=== PATIENT | male | born 1950 | race Caucasian/White ===

== ENCOUNTER 2020-07-01 10:19 | Outpatient (CLI) | payer MEDICARE, SELFPAY ==
--- NOTE | 2020-07-01 10:30 | ECG_ITS ---
Measurements Intervals [place] Rate: 77 P: 82 DE: 174 QRS: -6 QRSD: 110 T: 65 QT: 373 QTc: 424 Interpretive Statements SINUS RHYTHM INTRAVENTRICULAR CONDUCTION DELAY CANNOT RULE OUT SEPTAL INFARCT, AGE INDETERMINATE BASELINE ARTIFACT- I, II, III, AVR, AVL, AVF, V2-V6 ABNORMAL ECG Electronically Signed On 07-01-2020 11:02:19 CDT by Jacobo Manzo D.O.
[2020-07-01 13:07] LABS: Anion Gap 3 mmol/L (8-16); Blood Urea Nitrogen 24 mg/dL (9-20); Calcium 9.5 mg/dL (8.4-10.2); Carbon Dioxide 34 mmol/L (22-30); Chloride 101 mmol/L (98-107); Estimated Glomerular Filt Rate > 60; Glucose 103 mg/dL (75-110); Potassium 3.8 mmol/L (3.4-5.0); Sodium 138 mmol/L (137-145)
== END 2020-07-01 10:20 | disposition home or self-care (01) ==
LOC: ANHSURGERY 10:24
PROVIDERS: Anesthesiology; PCP Internal Medicine; Visit Provider Urology
DX: I10 Essential (primary) hypertension (principal); Z01.818 Encounter for other preprocedural examination; Z51.81 Encounter for therapeutic drug level monitoring; I45.9 Conduction disorder, unspecified
CPT/HCPCS: 36415; 80048; 93005

== ENCOUNTER → 2020-07-05 04:17 | Outpatient (CLI) | payer MEDICARE, SELFPAY ==
[2020-07-05 19:57] LABS: SARS-CoV-2 RNA PCR Negative
== END ==
PROVIDERS: PCP Internal Medicine; Visit Provider Urology
DX: Z01.812 Encounter for preprocedural laboratory examination (principal); Z20.822 Contact with and (suspected) exposure to COVID-19
CPT/HCPCS: C9803; U0003; U0005

== ENCOUNTER 2020-07-08 01:54 | Day surgery (SDC) | payer MEDICARE, SELFPAY ==
[2020-06-16 11:07] VITALS: BMI 25.8
--- NOTE | 2020-07-05 08:11 | P.HP_ITS ---
History of Present Illness History of Present Illness Consent: Risks, benefits, and alternatives have been discussed and questions answered. Patient agrees to proceed with procedure. Chief complaint: elevated PSA Narrative: Fermín Red is a 69 year old male He is currently on finasteride for BPH and has had 2 prior negative biopsies by an outside urologist in the past. He has had recent progression in his PSA and a prostate MRI showed PI-RADS 5 lesion in the right periphery and a PI-RADS 4 lesion in the anterior transition zone. After discussion of options he has elected for a transrectal ultrasound fusion biopsy of the prostate. He is aware of the risk including rectal bleeding and urinary tract infection with possible sepsis. Review of Systems Cardiovascular: Cardiovascular: Denies chest pain, Denies lightheadedness, Denies palpitations and Denies dyspnea Respiratory: Respiratory: Denies dyspnea Gastrointestinal: Gastrointestinal: Denies diarrhea, Denies nausea and Denies vomiting Genitourinary: Genitourinary: Denies hematuria and Denies dysuria Endocrine: Endocrine: Denies palpitations PMF Social History Social History Smoking packs per day: 1.5 Smoking cigarettes per day: 30.0 Years smoked: 40 Smoking pack-years: 60.00 Smoking status: Never smoker Tobacco type: cigarettes Smoking end date: 03/12/14 Gender identity (if verbalized by the patient): Male Spiritual care concerns: No Meds Home Medications and Allergies Home Medications Medication Instructions Recorded Confirmed Type ascorbic acid (vitamin C) 500 mg PO DAILY 06/16/20 06/29/20 History aspirin [Adult Low Dose Aspirin] 81 mg PO DAILY 06/16/20 06/29/20 History chlorthalidone 25 mg PO DAILY 06/16/20 06/29/20 History cholecalciferol (vitamin D3) 25 mcg PO DAILY 06/16/20 06/29/20 History finasteride 5 mg PO DAILY 06/16/20 06/29/20 History guaifenesin [Mucinex] 1,200 mg PO BID 06/16/20 06/29/20 History lisinopril 40 mg PO DAILY 06/16/20 06/29/20 History vglqhcir-jol-WT-lycopen-lutein 1 tablet PO DAILY 06/16/20 06/29/20 History [Centrum Silver Men] umeclidinium-vilanterol [Anoro 62.5 ea INHALATION DAILY 06/16/20 06/29/20 History Ellipta] Allergies Allergy/AdvReac Type Severity Reaction Status Date / Time No Known Allergies Allergy Mild Unverified 06/29/20 12:54 Exam Const: General: no acute distress Resp: Effort & Inspection: normal respiratory effort GI: Inspection: non-distended GI Palp: No abdominal tenderness and No Guarding due to palpation present (GI) Auscultation: normal bowel sounds Assessment and Plan Assessment and plan (1) Elevated PSA: Code(s): R97.20 - Elevated prostate specific antigen [PSA] Status: Acute Assessment and Plan: * MRI fusion biopsy of the prostate.
--- NOTE | 2020-07-08 06:55 | WPDHPUPDATE1 ---
History and Physical Update Update Date/Time: 07/08/20 06:55 History and Physical has been reviewed, including an updated exam of the patient. There are NO changes in the patient's condition. Risks, benefits, and alternatives have been discussed and questions answered. Patient agrees to proceed with procedure.
[2020-07-08 10:58] VITALS: BP 149/78; PULSE 98; RESP 14; TEMP 36.6; O2SAT 100
[2020-07-08] MEDS: LACTATED RINGERS 1,000 ML 30 ML IV CONT (11:21)
--- NOTE | 2020-07-08 11:31 | SUR.PREOP ---
patient currently on 3l nc at home, placed nc 3L on pt.fwith o2 sat 100%.
--- NOTE | 2020-07-08 11:37 | WPDANESEPPF ---
Anes - Initial Pre Proc Eval Procedure: Operation Date: 07/08/20 12:45 Proposed Procedures p Prostate Ultrasound and Cognitive Uronav Fusion Biopsy - Richard Dangelo MD Date/Time: 07/08/20 11:37 Surgeon: Richard Dangelo MD Pre Op Diagnosis: elevated PSA Patient Data Age: 69 Gender: M Height: 5 ft 11 in Weight: 83.2 kg Last Vital Signs Temp 98 F 07/08/20 10:58 Pulse 98 07/08/20 10:58 Resp 14 07/08/20 10:58 BP 149/78 H 07/08/20 10:58 Pulse Ox 100 07/08/20 10:58 Allergies Allergy/AdvReac Type Severity Reaction Status Date / Time No Known Allergies Allergy Mild Unverified 07/08/20 11:11 Home Medications Medication Instructions Recorded Confirmed Type ascorbic acid (vitamin C) 500 mg PO DAILY 06/16/20 07/08/20 History aspirin [Adult Low Dose Aspirin] 81 mg PO DAILY 06/16/20 07/08/20 History chlorthalidone 25 mg PO DAILY 06/16/20 07/08/20 History cholecalciferol (vitamin D3) 25 mcg PO DAILY 06/16/20 07/08/20 History finasteride 5 mg PO DAILY 06/16/20 07/08/20 History guaifenesin [Mucinex] 1,200 mg PO BID 06/16/20 07/08/20 History lisinopril 40 mg PO DAILY 06/16/20 07/08/20 History rycckgjg-syn-ID-lycopen-lutein 1 tablet PO DAILY 06/16/20 07/08/20 History [Centrum Silver Men] umeclidinium-vilanterol [Anoro 62.5 ea INHALATION DAILY 06/16/20 07/08/20 History Ellipta] Patient hx anesthesia problems: none Family hx anesthesia problems: none PMFSH Past Medical History Medical History (Updated 07/08/20 @ 11:33 by Madhu Mcneil MD) COPD (chronic obstructive pulmonary disease) on 3L at HS Hypertension Social History Social History Smoking packs per day: 1.5 Smoking cigarettes per day: 30.0 Years smoked: 40 Smoking pack-years: 60.00 Smoking status: Never smoker Tobacco type: cigarettes Smoking end date: 03/12/14 Living arrangements: with family Gender identity (if verbalized by the patient): Male Spiritual care concerns: No Anes - Eval Final PreProcedure Day of Procedure 07/08/20 11:37 Patient weight: overweight Heart: regular rate and rhythm Lungs: clear to auscultation Airway: Mallampati scale class II Neurological: alert and oriented Last oral intake: >/= 8 hours ASA classification: III Emergent: no Anesthetic plan: proceed Anesthesia type and monitoring: general GIVS and standard monitoring Informed Consent: The patient's anesthetic plan and its attendant risks and benefits were discussed with the patient/family/POA. Questions were solicited and answers provided to the satisfaction of the patient/family/POA.
--- NOTE | 2020-07-08 13:30 | P.OP_ITS ---
Procedure Note - Detailed Date of procedure: 07/08/20 Pre-op diagnosis: elevated PSA Post-op diagnosis: same Procedure performed: UroNav prostate biopsy Description of procedure: Patient is brought to the operative suite where he is positioned in the left lateral position. Systemic sedation is administered per the anesthesia department. Surgical time-out is undertaken and it's verified the patient has received preoperative antibiotics. Transrectal ultrasonography is undertaken with a standard transrectal probe. The TigerText system is used to superimpose his previously obtained mpMRI prostate images on the real-time transrectal ultrasond images. Prostate volume is calculated at 51cc. On the previous mpMRI there are 2 regions of interest. Using the transrectal needle design for prostate biopsies 3 cores from each region of interest her obtain. We then proceeded with a standard 12 core prostate biopsy. Transrectal probe was removed and patient taken to recovery room having tolerated the procedure well. Blood loss was less than 10 cc. Anesthesia: MAC Surgeon: Richard Dangelo MD Drains: No Packing: No Pathology: yes Complications: No immediate complications Condition: stable Disposition: PACU
[2020-07-08 13:37] VITALS: BP 114/62; PULSE 78; RESP 16; O2SAT 100
[2020-07-08 14:05] VITALS: BP 105/69; PULSE 84; RESP 16; O2SAT 98
[2020-07-08 14:35] VITALS: BP 110/70; PULSE 80; RESP 16; O2SAT 98
[2020-07-08 14:55] VITALS: BP 115/62; PULSE 85; RESP 16; O2SAT 98
== END 2020-07-08 15:05 | disposition home or self-care (01) ==
PROVIDERS: PCP Internal Medicine; Visit Provider Urology
PROC: (CPT 55700; principal; 2020-07-08 12:45)
DX: C61 Malignant neoplasm of prostate (principal); I10 Essential (primary) hypertension; J44.9 Chronic obstructive pulmonary disease, unspecified; Z87.891 Personal history of nicotine dependence
CPT/HCPCS: 55700; 88305; J2405; J2704; J3010; J7120

== ENCOUNTER 2020-07-16 08:35 | Outpatient (CLI) | payer MEDICARE, SELFPAY ==
--- NOTE | ~2020-07-16 | NM_ITS ---
EXAMINATION: NM bone scan whole body DATE: 07/16/2020 12:31 INDICATION: Prostate cancer TECHNIQUE: 26.4 mCi Tc-99m HDP was administered intravenously. Delayed whole-body scintigrams were o btained. COMPARISON: CT dated 07/26/2020 FINDINGS: Mild likely degenerative uptake associated with moderate to severe multilevel cervical facet and unco vertebral osteoarthritis. Additional mild likely degenerative joint centered uptake at the right acro mioclavicular joint associated with moderate osteoarthritis. Mild disc centered uptake associated wit h severe disc height loss and degenerative endplate changes at L4-L5. No other suspicious foci of abn ormal bone uptake to suggest metastatic disease. IMPRESSION: 1. No evident metastatic disease. Reviewed, dictated and finalized at location A.
--- NOTE | ~2020-07-16 | CT_ITS ---
EXAMINATION: CT abdomen pelvis w con INDICATION: Prostate cancer TECHNIQUE: Computed tomographic images of the abdomen and pelvis were obtained after the administrati on of 100 cc of Omnipaque 350 intravenous contrast. The dose-length product (DLP) was 493.26 mGy-cm. Automated exposure control and iterative reconstruction technique were employed. COMPARISON: 09/13/2017 FINDINGS: Minimal dependent atelectasis is present in the lung bases. The heart size is normal. Cysts of the liver measure up to 5 mm in the left hepatic lobe. The spleen, pancreas, gallbladder, and adr enal glands are normal. The left kidney is unremarkable. There is a 4 mm nonobstructing stone of the right kidney. There is calcified atherosclerosis of the aorta and many of the other arteries. No path ologically enlarged abdominal or pelvic lymph nodes are identified. There is no free intraperitoneal gas or evidence of bowel obstruction. There is severe lumbar spondylosis. There is a fat-containing u mbilical hernia. A 5 mm stone is present in the urinary bladder. IMPRESSION: 1. No evidence of metastatic disease. 2. Nonobstructing right nephrolithiasis. 3. 5 mm bladder stone. Reviewed, dictated and finalized at location A.
--- NOTE | ~2020-07-16 | XR_ITS ---
EXAMINATION: XR chest 2V DATE: 07/16/2020 08:52 INDICATION: Prostate cancer TECHNIQUE: AP and lateral views of the chest are obtained. COMPARISON: 01/29/2015 FINDINGS: There is mild atelectasis of the lung bases. There is no pleural effusion or pneumothorax. The cardiomediastinal silhouette is normal. There is moderate thoracic spondylosis. IMPRESSION: 1. Mild atelectasis of the lung bases. Reviewed, dictated and finalized at location A.
== END 2020-07-16 08:36 | disposition home or self-care (01) ==
LOC: ANHIMG 08:38
PROVIDERS: PCP Internal Medicine; Visit Provider Urology
DX: C61 Malignant neoplasm of prostate (principal); N21.0 Calculus in bladder; N20.0 Calculus of kidney; R91.8 Other nonspecific abnormal finding of lung field
CPT/HCPCS: 71046; 74177; 78306; A9561; Q9967

== ENCOUNTER 2020-08-25 12:45 | Outpatient (CLI) | payer MEDICARE, SELFPAY ==
--- NOTE | ~2020-08-25 | XR_ITS ---
XR chest 2V 08/25/2020 14:15 Indication: Neoplasm of the prostate Procedure: PA and lateral views of the chest Comparison: Comparison to multiple prior studies sequentially, with oldest reviewed study dated 01/11. Findings: There are linear infiltrates of the lower lung zones. The lungs are hyperinflated which is consistent with, but not diagnostic of chronic obstructive pulmonary disease. Heart size normal. No p leural effusion or pneumothorax. No acute osseous abnormality. Impression: 1: Linear bibasilar infiltrates which may represent atelectasis or scarring. Reviewed, dictated and finalized at location A. Impression: 1: Linear bibasilar infiltrates which may represent atelectasis or scarring.
[2020-08-25 14:51] LABS: Basophils Percent Auto 0.6 % (0.2-1.2); Eosinophils Absolute Auto 0.3 K/mm3 (0-0.3); Eosinophils Percent Auto 3.7 % (0-4.4); Hematocrit 46.6 % (42.0-52.0); Hemoglobin 15.2 g/dL (14.0-18.0); Immature Granulocyte Absolute 0.08 K/mm3 (0.00-0.031); Immature Granulocyte Percent A 1.2 % (0-0.5); Lymphocytes Percent Auto 31.3 % (18.3-44.2); Mean Corpuscular HGB Conc 32.6 g/dl (32-36); Mean Corpuscular Hemoglobin 31.7 pg (26-34); Mean Corpuscular Volume 97.3 fl (80-100); Mean Platelet Volume 9.3 fl (7.4-10.4); Monocytes Absolute Auto 0.8 K/mm3 (0.1-0.6); Monocytes Percent Auto 11.6 % (2.6-8.5); Neutrophils Absolute Auto 3.5 K/mm3 (1.3-6.7); Neutrophils Percent Auto 51.6 % (45.5-73.1); Platelet Count Result 283 k/mm3 (150-375); Red Blood Count 4.79 M/mm3 (4.6-6.20); Red Cell Distribution Width 13.4 % (11.5-14.5); White Blood Count 6.7 K/mm3 (4.5-10.0)
[2020-08-25 14:59] LABS: Prothrombin Time 13.7 Seconds (11.1-14.7)
[2020-08-25 15:00] LABS: Add Urine Microscopic? YES; Appearance Urine Clear (Clear); Bilirubin Urine Negative (Negative); Blood Urine Negative (Negative); Color Urine Yellow (Yellow); Glucose Urine UA Negative (Negative); Ketones Urine Trace mg/dL (Negative); Leukocyte Esterase Ur Negative LEU/UL (Negative); Mucus Urine Rare /lpf; Nitrate Urine Negative (Negative); Protein Urine 1+ mg/dL (Negative); RBC Urine 0-2 /hpf (0-2); Specific Grav Ur 1.026 (1.001-1.035); Squamous Epithelial Cell Urine Rare /hpf (Few); Urobilinogen Urine Negative mg/dL (<2.0); WBC Urine 0-3 /hpf
[2020-08-25 15:00] LABS: Partial Thromboplastin Time 25.4 SECONDS (22.3-36.8)
[2020-08-25 15:05] LABS: Alanine Aminotransferase 33 U/L (4-50); Albumin Level 4.4 g/dL (3.5-5.1); Alkaline Phosphatase 96 U/L (38-126); Anion Gap 8 mmol/L (8-16); Aspartate Amino Transferase 38 U/L (17-59); Bilirubin,Total 0.7 mg/dL (0.2-1.3); Blood Urea Nitrogen 30 mg/dL (9-20); Calcium 9.7 mg/dL (8.4-10.2); Carbon Dioxide 31 mmol/L (22-30); Chloride 102 mmol/L (98-107); Estimated Glomerular Filt Rate > 60; Glucose 99 mg/dL (75-110); Potassium 3.7 mmol/L (3.4-5.0); Sodium 141 mmol/L (137-145)
== END 2020-08-25 12:46 | disposition home or self-care (01) ==
LOC: ANHSURGERY 12:49
PROVIDERS: PCP Internal Medicine; Visit Provider Urology
DX: C61 Malignant neoplasm of prostate (principal); Z01.818 Encounter for other preprocedural examination; R91.8 Other nonspecific abnormal finding of lung field
CPT/HCPCS: 36415; 71046; 80053; 81001; 85025; 85610; 85730; 86850; 86900; 86901

== ENCOUNTER → 2020-08-30 00:22 | Outpatient (CLI) | payer MEDICARE, SELFPAY | PROVIDERS: PCP Internal Medicine; Visit Provider Urology | DX: Z01.812 Encounter for preprocedural laboratory examination (principal); Z20.822 Contact with and (suspected) exposure to COVID-19 | CPT/HCPCS: C9803; U0003; U0005 ==

== ENCOUNTER 2020-09-02 01:09 | Day surgery (SDC) | payer MEDICARE, SELFPAY ==
[2020-08-25 12:57] VITALS: BMI 25.2
[2020-08-25 13:39] VITALS: BP 125/67; PULSE 76; RESP 16; TEMP 36.7; O2SAT 93
--- NOTE | 2020-08-30 15:52 | PM.IMHP ---
H&P: HPI History of Present Illness Date/Time: 08/30/20 15:52 Pleasant gentleman who has a history of 2 prior negative prostate biopsies in the remote past. he was did referred back with a PSA of 10.2. Prostate MRI showed 2 suspicious lesions, 1 in the right periphery and the other in the anterior transition zone. He underwent a prostate fusion biopsy which demonstrated all 14 cores. 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 CT scan abdomen pelvis bone scan and chest x-ray showed no evidence of extracapsular or metastatic disease. His pelvic CT scan did show a 5 mm bladder calculus.Prostate volume was 51 cc. After discussions of options for his high risk prostate cancer include a in deprivation with pelvic radiation, active surveillance, androgen deprivation alone and robotic prostatectomy he has elected for the latter. He is aware of the risk of this procedure including, but not limited to, adverse cardiopulmonary events, rectal dysfunction, rectal injury, failure to control his cancer and urinary incontinence. Chief Complaint: Prostate cancer Review of Systems Cardiovascular: Cardiovascular: Denies chest pain, Denies lightheadedness, Denies palpitations and Denies dyspnea Respiratory: Respiratory: Denies dyspnea Gastrointestinal: Gastrointestinal: Denies diarrhea, Denies nausea and Denies vomiting Genitourinary: Genitourinary: Denies hematuria and Denies dysuria Endocrine: Endocrine: Denies palpitations [facility] Past Medical History Medical History COPD (chronic obstructive pulmonary disease) on 3L at HS Hypertension Social History Social History Smoking packs per day: 1.5 Smoking cigarettes per day: 30.0 Years smoked: 40 Smoking pack-years: 60.00 Smoking status: Former smoker Tobacco type: cigarettes Smoking end date: 03/12/14 Alcohol intake: current Gender identity (if verbalized by the patient): Male Spiritual care concerns: No Meds Home Medications and Allergies Home Medications Medication Instructions Recorded Confirmed Type Anoro Ellipta 1 inh INHALATION DAILY 06/16/20 08/25/20 History Centrum Silver Men 1 tablet PO DAILY 06/16/20 08/25/20 History Mucinex 1,200 mg PO BID 06/16/20 08/25/20 History ascorbic acid (vitamin C) 500 mg PO DAILY 06/16/20 08/25/20 History aspirin 81 mg PO DAILY 06/16/20 08/25/20 History chlorthalidone 25 mg PO DAILY 06/16/20 08/25/20 History cholecalciferol (vitamin D3) 25 mcg PO DAILY 06/16/20 08/25/20 History finasteride 5 mg PO DAILY 06/16/20 08/25/20 History lisinopril 40 mg PO DAILY 06/16/20 08/25/20 History cyanocobalamin (vitamin B-12) 1,000 mcg PO DAILY 08/25/20 08/25/20 History Allergies Allergy/AdvReac Type Severity Reaction Status Date / Time No Known Allergies Allergy Mild Unverified 08/25/20 12:57 Exam Const: General: no acute distress Resp: Effort & Inspection: normal respiratory effort GI: Inspection: non-distended GI Palp: No abdominal tenderness and No Guarding due to palpation present (GI) Auscultation: normal bowel sounds Assessment and Plan Assessment and plan (1) Prostate cancer: Code(s): C61 - Malignant neoplasm of prostate Status: Acute Assessment and Plan: Patient with high-grade high-risk prostate cancer. Bladder stone was identified on staging CT scan. Will play around robotic assisted radical prostatectomy with pelvic lymphadenectomy. Will plan some obtain as bladder stone extraction.
--- NOTE | 2020-09-01 12:48 | WPDANESEPPF ---
Anes - Initial Pre Proc Eval Procedure: Operation Date: 09/02/20 07:30 Proposed Procedures p Robotic Assisted Laparoscopic Prostatectomy With Bilateral Pelvic Lymph Node Dissection - Richard Dangelo MD s Cystolitholapaxy - Richard Dangelo MD Date/Time: 09/01/20 12:48 Surgeon: Richard Dangelo MD Pre Op Diagnosis: prostate ca Patient Data Age: 70 Gender: M Height: 1.8 m Weight: 81.9 kg Last Vital Signs Temp 36.7 C 08/25/20 13:39 Pulse 76 08/25/20 13:39 Resp 16 08/25/20 13:39 BP 125/67 08/25/20 13:39 Pulse Ox 93 08/25/20 13:39 Allergies Allergy/AdvReac Type Severity Reaction Status Date / Time No Known Allergies Allergy Mild Unverified 09/02/20 07:30 Home Medications Medication Instructions Recorded Confirmed Type Anoro Ellipta 1 inh INHALATION DAILY 06/16/20 09/02/20 History Centrum Silver Men 1 tablet PO DAILY 06/16/20 09/02/20 History Mucinex 1,200 mg PO BID 06/16/20 09/02/20 History ascorbic acid (vitamin C) 500 mg PO DAILY 06/16/20 09/02/20 History aspirin 81 mg PO DAILY 06/16/20 09/02/20 History chlorthalidone 25 mg PO DAILY 06/16/20 09/02/20 History cholecalciferol (vitamin D3) 25 mcg PO DAILY 06/16/20 09/02/20 History finasteride 5 mg PO DAILY 06/16/20 09/02/20 History lisinopril 40 mg PO DAILY 06/16/20 09/02/20 History cyanocobalamin (vitamin B-12) 1,000 mcg PO DAILY 08/25/20 09/02/20 History Patient hx anesthesia problems: none Family hx anesthesia problems: none PMFSH Past Medical History Medical History (Updated 09/01/20 @ 12:57 by Duncan Costa MD) COPD (chronic obstructive pulmonary disease) on 3L at HS Hypertension Prostate cancer Social History Social History Smoking packs per day: 1.5 Smoking cigarettes per day: 30.0 Years smoked: 40 Smoking pack-years: 60.00 Smoking status: Former smoker Tobacco type: cigarettes Smoking end date: 03/12/14 Alcohol intake: current Alcohol use details: TWO DRINKS PER MONTH Living arrangements: with family Gender identity (if verbalized by the patient): Male Spiritual care concerns: No Anes - Eval Final PreProcedure Day of Procedure 09/01/20 12:48 Patient weight: obese Heart: regular rate and rhythm Lungs: clear to auscultation and normal air movement Airway: Mallampati scale class II Neurological: alert and oriented Last oral intake: >/= 8 hours ASA classification: III Emergent: no Anesthetic plan: proceed Anesthesia type and monitoring: general ETT Informed Consent: The patient's anesthetic plan and its attendant risks and benefits were discussed with the patient/family/POA. Questions were solicited and answers provided to the satisfaction of the patient/family/POA.
[2020-09-02] VITALS (18 sets, daily range): BP systolic 101–148; BP diastolic 56–81; PULSE 77–99; RESP 10–20; TEMP 36.1–37.4; O2SAT 93–100
--- NOTE | 2020-09-02 06:06 | WPDHPUPDATE1 ---
History and Physical Update Update Date/Time: 09/02/20 06:06 History and Physical has been reviewed, including an updated exam of the patient. There are NO changes in the patient's condition. Risks, benefits, and alternatives have been discussed and questions answered. Patient agrees to proceed with procedure.
[2020-09-02] MEDS: LACTATED RINGERS 1,000 ML 30 ML IV CONT ×3 (07:00→12:49)
[2020-09-02] MEDS: ceFAZolin 2 GM/D5W 50 ML 2 GM/50 ML BAG IVPB (07:20)
--- NOTE | 2020-09-02 10:46 | W.PM.PROC2 ---
Procedure Note - Detailed Date of Procedure 09/02/20 Pre-op Diagnosis Prostate cancer, bladder calculus Post-op Diagnosis same Procedure Performed Robotic assisted laparoscopic prostatectomy with bilateral pelvic lymphadenectomy, cystoscopy with bladder stone extraction. Surgeon Richard Dangelo MD Budget Specialist None Anesthesia general Indications High-risk prostate cancer Findings No evidence of gross extraprostatic cancer. Description of Procedure The patient was brought to the operative suite, where he was prepped and draped in routine sterile fashion while in a dorsal lithotomy, deep Trendelenburg position. I 1st did flexible cystoscopy and extracted his small bladder stone with a disposable stone basket. A supraumbilical 10 mm trocar was placed after insufflation of the abdomen with a Veress needle. Three robotic ports were then placed under direct vision. Two of these were placed in the right lower quadrant - 10 cm and 20 cm lateral to, and in line with, the umbilicus. A third robotic trocar was placed 10 cm to the left of the umbilicus, and 20 cm to the left of the umbilicus, a 12 mm standard laparoscopic trocar was placed to be used as an lead recreation assistant port. Lastly, a 5 mm trocar was placed in the left upper quadrant midway between the umbilicus and the left robotic trocar. Attention was then turned to the prostatectomy. I opted for a posterior approach in this patient. An incision was made in the parietal peritoneum along the posterior bladder/posterior prostate about 2 cm above the reflection of the peritoneum over the anterior rectum. The seminal vesicles and vas deferens were immediately identified. Dissection is undertaken in a fashion so as to avoid electrocautery as much as possible, particularly near the tips of the seminal vesicles. Dissection was also carried out in the midline so as to avoid any encounters with the ureters. The vas deferens and the seminal vesicles were dissected in their entirety to the base of the prostate. The plane anterior to Denoviller's fascia, anterior to the rectum and posterior to the prostate was then developed. I then dropped the bladder by incising the anterior parietal peritoneum just lateral to the median umbilical ligaments bilaterally. The bladder was dropped from the anterior abdominal and pelvic wall. The endopelvic fascia was identified and incised bilaterally, allowing for dissection of the posterior-lateral aspect of the prostate. The puboprostatic ligaments were transected near their origin from the posterior pubic ramus. This posterior lateral dissection of the prostate is also undertaken in a fashion so as to avoid electrocautery as much as possible. The dorsal vein of the penis is then secured with an 0 -Vicryl ligature. Attention is then turned to the bladder neck. The anterior bladder neck is incised at the vesico-prostatic junction. The previously placed urethral catheter was drawn through the urethrotomy. A very small bladder neck was maintained throughout the remainder of this dissection. The posterior bladder neck was incised in a fashion so as to avoid any injury to the ureteral orifices. Again, the small aperture of the bladder neck was maintained. The previously dissected vas deferens and the seminal vesicles were brought through the posterior bladder neck incision. The lateral prostatic pedicles were then carefully dissected from the lateral aspect of the prostate bilaterally. The prostatic pedicles were secured with Weck clips and transected. The neurovascular bundles were carefully dissected from the posterior-lateral aspect of the prostate. The dorsal vein of the penis was incised with electrocautery. Using cold scissors, the urethra was incised. After withdrawing the previously placed urethral catheter, the posterior urethra was sharply incised, as was the rectalurethralis muscle. Attention was then turned to a bilateral pelvic lymphadenectomy. The limits of this dissecti
--- NOTE | 2020-09-02 11:32 | SUR.PHASEI ---
1132 - dr. graham at bedside assessing and talking with pt
--- NOTE | 2020-09-02 14:16 | ADMGEN ---
This patient, Fermín Red, was admitted to Medical Room 252-01. Patient/family oriented to hospital policies and general routines including ID bracelet, bed and alarms, visiting hours, pain management, procedures, bathroom and other care routines, personal items, smoking policy, room service/diet, and visiting hours. Information on how to activate the Rapid Response Team has been discussed. Patient/Family are encouraged to report perceived risks to care and to ask questions if they do not understand what they are told or what they should do.
[2020-09-02] MEDS: LACTATED RINGERS 1,000 ML 125 ML IV CONT ×2 (15:22→23:44)
[2020-09-02] MEDS: guaiFENesin 12 HR 600 MG TABCR 1200 MG PO (21:38)
[2020-09-03 01:15] VITALS: BP 118/68; PULSE 99; RESP 18; TEMP 36.6; O2SAT 99
[2020-09-03 05:03] VITALS: BP 102/64; PULSE 84; RESP 16; TEMP 36.4; O2SAT 98
[2020-09-03 05:58] LABS: Hematocrit 32.7 % (42.0-52.0); Hemoglobin 10.7 g/dL (14.0-18.0)
[2020-09-03 06:43] LABS: Anion Gap 3 mmol/L (8-16); Blood Urea Nitrogen 28 mg/dL (9-20); Calcium 8.2 mg/dL (8.4-10.2); Carbon Dioxide 28 mmol/L (22-30); Chloride 105 mmol/L (98-107); Estimated CRCL calculation 64 ml/min; Estimated Glomerular Filt Rate > 60; Glucose 104 mg/dL (75-110); Sodium 136 mmol/L (137-145)
--- NOTE | 2020-09-03 06:48 | WPDUROPN2 ---
Progress Note: A&P Assessment and Plan (1) Prostate cancer: Code(s): C61 - Malignant neoplasm of prostate Status: Acute Assessment and Plan: Doing well POD #1 RALP Increase diet/ambulation. Anticipate discharge this afternoon. Subjective Subjective Date/Time Seen: 09/03/20 06:48 Comfortable, POD #1 RALP Review of Systems Cardiovascular: Cardiovascular: Denies chest pain, Denies lightheadedness, Denies palpitations and Denies dyspnea Respiratory: Respiratory: Denies dyspnea Gastrointestinal: Gastrointestinal: Denies diarrhea, Denies nausea and Denies vomiting Genitourinary: Genitourinary: Denies hematuria and Denies dysuria Endocrine: Endocrine: Denies palpitations Exam Const: General: no acute distress Resp: Effort & Inspection: normal respiratory effort GI: Inspection: non-distended GI Palp: No abdominal tenderness and No Guarding due to palpation present (GI) Auscultation: normal bowel sounds Objective Data Vital Signs Vital Signs: Vital Signs - 24 hr 09/02/20 07:00 09/02/20 10:45 09/02/20 11:00 Temperature 97.5 F L 97.5 F L Pulse Rate 93 80 86 Respiratory Rate 16 10 L 16 Blood Pressure 132/67 148/79 H 140/74 Pulse Oximetry 93 100 96 09/02/20 11:15 09/02/20 11:30 09/02/20 11:45 Temperature Pulse Rate 83 77 79 Respiratory Rate 12 12 14 Blood Pressure 131/70 101/69 118/60 Pulse Oximetry 98 98 97 09/02/20 12:00 09/02/20 12:15 09/02/20 12:30 Temperature Pulse Rate 85 82 94 Respiratory Rate 16 12 20 Blood Pressure 108/60 110/57 L 111/60 Pulse Oximetry 96 98 97 09/02/20 12:45 09/02/20 13:00 09/02/20 13:15 Temperature Pulse Rate 87 87 89 Respiratory Rate 12 14 18 Blood Pressure 110/60 116/67 110/64 Pulse Oximetry 99 96 97 09/02/20 13:30 09/02/20 13:45 09/02/20 14:52 Temperature Pulse Rate 90 96 Respiratory Rate 14 16 Blood Pressure 110/64 121/81 Pulse Oximetry 97 98 96 09/02/20 18:00 09/02/20 20:22 09/02/20 20:30 Temperature 96.9 F L 99.3 F Pulse Rate 98 99 Respiratory Rate 18 16 Blood Pressure 136/63 112/56 L Pulse Oximetry 97 98 98 09/03/20 01:15 09/03/20 05:03 Temperature 97.9 F 97.6 F Pulse Rate 99 84 Respiratory Rate 18 16 Blood Pressure 118/68 102/64 Pulse Oximetry 99 98 Intake/Output Intake/Output: Intake & Output 08/31/20 09/01/20 09/02/20 09/03/20 23:59 23:59 23:59 23:59 Intake Total 1760 500 Output Total 60 1000 Balance 1700 -500 Meds/Results Medications: Active Medications Generic Name Dose Route Start Last Admin Trade Name Freq PRN Reason Stop Dose Admin Chlorthalidone 25 mg 09/03/20 09:00 Chlorthalidone 25 Mg Tablet PO DAILY [facility] Fentanyl Citrate 25 mcg 09/01/20 12:33 Fentanyl Citrate Inj (*Crx) 100 Mcg/2 Ml Vial IV PUSH Q2M PRN Pain Guaifenesin 1,200 mg 09/02/20 21:00 09/02/20 21:38 Guaifenesin 12 Hr 600 Mg Tabcr PO 1,200 mg Q12HR [facility] Administration Hydromorphone HCl 0.25 mg 09/01/20 12:33 Hydromorphone Hcl Inj (*Crx) 1 Mg/Ml Syr IV PUSH Q5M PRN Pain Hyoscyamine 0.125 mg 09/02/20 13:52 Hyoscyamine Sulfate 0.125 Mg Tablet SUBLINGUAL Q4H PRN Bladder Spasm Lactated Ringer's 1,000 mls @ 30 mls/hr 09/01/20 12:35 09/02/20 14:40 Lr - Lactated Ringers Iv IV CONT Not Given .Q24H [facility] Lactated Ringer's 1,000 mls @ 30 mls/hr 09/01/20 12:35 09/02/20 13:52 Lr - Lactated Ringers Iv IV CONT Infused .Q24H [facility] Infusion Lactated Ringer's 1,000 mls @ 125 mls/hr 09/02/20 13:52 09/02/20 23:44 Lr - Lactated Ringers Iv IV CONT 125 mls/hr .Q8H [facility] Administration Acetaminophen 1,000 mg in 100 mls @ 400 mls/hr 09/02/20 15:00 09/03/20 03:25 Ofirmev 1,000 Mg Ivpb IVPB 09/03/20 15:01 Infused Q6H [facility] Infusion Ketorolac Tromethamine 15 mg 09/02/20 13:52 Ketorolac 15 Mg/Ml Vial (*Bkc) IV PUSH 09/03/20 13:53 Q6H PRN Pain Rated 4-6 Levofloxacin 500 mg 09/03/20 09:00
[2020-09-03 08:00] VITALS: BP 102/52; PULSE 86
[2020-09-03 08:24] VITALS: O2SAT 98
[2020-09-03] MEDS: guaiFENesin 12 HR 600 MG TABCR 1200 MG PO (08:30)
[2020-09-03] MEDS: UMECLIDINIUM/VILANTEROL 62.5-25 MCG ELLIPTA 1 PUFF INHALATION (08:30)
[2020-09-03] MEDS: levoFLOXacin 500 MG TABLET PO (08:30)
[2020-09-03] MEDS: LACTATED RINGERS 1,000 ML 125 ML IV CONT (08:55)
[2020-09-03 09:50] VITALS: BP 115/47; PULSE 102; RESP 14; TEMP 37.1; O2SAT 97
--- NOTE | 2020-09-03 11:06 | WPDANESPN ---
Anes - Prog Note Post-Op Date/Time: 09/03/20 11:06 Cardiovascular status: normal Respiratory status: normal Airway patency: baseline Mental status: baseline Post-Op hydration status: normal Vital Signs: Last Vital Signs Temp 37.1 C 09/03/20 09:50 Pulse 102 H 09/03/20 09:50 Resp 14 09/03/20 09:50 BP 115/47 L 09/03/20 09:50 Pulse Ox 97 09/03/20 09:50 Pain Score (VAS): 03/21 I/O: Intake & Output 09/02/20 09/03/20 09/03/20 23:59 07:59 15:59 Intake Total 1460 1500 580 Output Total 1000 Balance 1460 500 580 Laboratory Tests 09/03/20 05:28 09/03/20 05:29 09/03/20 09/03/20 05:28 05:29 Hgb 10.7 L D Hct 32.7 L Sodium 136 L Potassium 4.0 Chloride 105 Carbon Dioxide 28 Anion Gap 3 L BUN 28 H Creatinine 1.00 Estim Creat Clear Calc 64 Estimated GFR > 60 Glucose 104 Calcium 8.2 L Post-procedural complaints: none Patient Feedback: Patient satisfied with anesthetic care.
--- NOTE | 2020-09-03 12:16 | PM.DS ---
DS: Admitting Diagnosis Admitting Diagnosis Admitting Diagnosis: Prostate cancer DS: Discharge Diagnosis Discharge Diagnosis (1) Prostate cancer: Code(s): C61 - Malignant neoplasm of prostate Status: Acute DS: Summary Hospital Course Hospital Course: This patient was admitted on the morning of his planned robotic prostatectomy. This procedure was uneventful, as was his postoperative course. By the evening of the procedure he was sitting at the bedside in tolerating a liquid diet. The following morning he was ambulating freely and tolerating regular food. His catheter drainage remained essentially clear throughout. His postoperative hemoglobin and serum creatinine were unremarkable. At the time of discharge he has been instructed in appropriate care for his Qiu catheter with both a leg bag and bedside bag. He will be discharged with plans to follow-up in 1 week with a cystogram. Time Spent with Patient Time attestation: Total time spent providing and/or coordinating discharge services: 15min Exam Const: General: no acute distress Resp: Effort & Inspection: normal respiratory effort GI: Inspection: non-distended GI Palp: No abdominal tenderness and No Guarding due to palpation present (GI) Auscultation: normal bowel sounds DS: Data Data Completed and Pending Pending studies at discharge: Pending at discharge 09/02/20 09:11 Surgical [PTH] Routine Labs on day of discharge: Labs from last 24 hours 09/03/20 09/03/20 05:29 05:28 Hgb 10.7 L D Hct 32.7 L Sodium 136 L Potassium 4.0 Chloride 105 Carbon Dioxide 28 Anion Gap 3 L BUN 28 H Creatinine 1.00 Estim Creat Clear Calc 64 Estimated GFR > 60 Glucose 104 Calcium 8.2 L Discharge Plan Discharge Patient Disposition: Home, Self-Care Discharge Instructions: 1) Qiu catheter -> leg bag / bedside bag at night. 2) No lifting/straining >15lbs. x3 weeks. 3) No driving x1-week. 4) Resume normal, pre-operative diet. 5) My office will contact regarding follow-up in 1-week with cystogram. Patient Instructions: Qiu Catheter Placement and Care (DC) Discharge Orders: Discharge Order (Routine); Ordered 09/03/20 Ordered By: Richard Dangelo Discharge Medications: New ciprofloxacin HCl 500 mg tablet 500 mg PO Q12H Qty: 10 RF: 0 docusate sodium [Colace] 100 mg capsule 100 mg PO DAILY Qty: 30 RF: 0 hydrocodone-acetaminophen 5-325 mg tablet 1 - 2 tablet PO Q6H PRN (Reason: pain) Qty: 20 RF: 0 hyoscyamine sulfate 0.125 mg tablet 0.125 mg PO Q6H PRN (Reason: bladder spasms) Qty: 20 RF: 2 Continued chlorthalidone 25 mg tablet 25 mg PO DAILY RF: 0 lisinopril 40 mg tablet 40 mg PO DAILY RF: 0 Anoro Ellipta 62.5-25 mcg/actuation blister with device 1 inh INHALATION DAILY RF: 0 Mucinex 1,200 mg Tablet Extended Release 12hr 1,200 mg PO BID RF: 0 Centrum Silver Men 300-600-300 mcg Tablet 1 tablet PO DAILY RF: 0 Held aspirin 81 mg Tablet 81 mg PO DAILY RF: 0 Hold Instructions: Resume on 09/08/20. cholecalciferol (vitamin D3) 25 mcg (1,000 unit) Capsule 25 mcg PO DAILY RF: 0 Hold Instructions: Resume on 09/08/20. ascorbic acid (vitamin C) 500 mg Capsule 500 mg PO DAILY RF: 0 Hold Instructions: Resume on 09/08/20. cyanocobalamin (vitamin B-12) 1,000 mcg Tablet 1,000 mcg PO DAILY RF: 0 Hold Instructions: Resume on 09/08/20. Discontinued finasteride 5 mg tablet 5 mg PO DAILY RF: 0
== END 2020-09-03 14:18 | disposition home or self-care (01) ==
LOC: ANHSURGERY 05:57 → ANH2MED 14:10
PROVIDERS: PCP Internal Medicine; Visit Provider Urology
PROC: 0VT04ZZ Resection of Prostate, Percutaneous Endoscopic Approach (ICD-10-PCS; CPT 55867; principal; 2020-09-02 07:30)
PROC: 0TCB8ZZ Extirpation of Matter from Bladder, Via Natural or Artificial Opening Endoscopic (ICD-10-PCS; CPT 52352; 2020-09-02 07:30)
DX: C61 Malignant neoplasm of prostate (principal); N21.0 Calculus in bladder; J44.9 Chronic obstructive pulmonary disease, unspecified; Z87.891 Personal history of nicotine dependence; I10 Essential (primary) hypertension
CPT/HCPCS: 55866; 38571; 52310; S2900; 36415; 80048; 82365; 85014; 85018; 88300; 88305; 88307; 88309; 88342; A9270; J0131; J0690; J1170; J2250; J2270; J7030; J7120

== ENCOUNTER 2020-09-09 08:29 | Outpatient (CLI) | payer MEDICARE, SELFPAY ==
--- NOTE | ~2020-09-09 | XR_ITS ---
EXAMINATION: CYSTOGRAM DATE: 09/09/2020 09:13 INDICATION: Prostate cancer TECHNIQUE: Initial core inspector radiograph of the pelvis was performed. There was retrograde administration of Omnipaque 350 mixed with saline contrast into patient's existing Qiu catheter. Fluoroscopic nkechi ges of the pelvis were obtained. A post-void image was also performed. A total of 1 core inspector radiograph and 25 fluoroscopic images were recorded. Fluoroscopy exposure time was 1.2 minutes. Total DAP was 16 .456 mGycm^2 FINDINGS: Mild trabeculation along portions of the bladder wall with a couple small diverticula along the left and right posterior parsons of the bladder. No evident bladder leak. There is a lucent filling defect w ithin the bladder which appears relatively round with the bladder distended which appears to decrease in size with bladder emptying which likely represents a gas bubble which demonstrate more irregular contour likely reflecting the bladder wall trabeculation in the postevacuation decompressed bladder. There is some atherosclerotic calcification along the iliac arteries on both the left and right. IMPRESSION: Mild bladder wall trabeculation with a couple small bladder diverticula likely related to chronic out let obstruction. No evident bladder leak. Reviewed, dictated and finalized at location A. IMPRESSION: Mild bladder wall trabeculation with a couple small bladder diverticula likely related to chronic outlet obstruction. No evident bladder leak.
== END 2020-09-09 08:30 | disposition home or self-care (01) ==
LOC: ANHIMG 08:32
PROVIDERS: PCP Internal Medicine; Visit Provider Urology
DX: C61 Malignant neoplasm of prostate (principal)
CPT/HCPCS: 51600; 74430; Q9967

== ENCOUNTER 2020-11-11 09:21 | Outpatient (CLI) | payer MEDICARE, SELFPAY ==
--- NOTE | ~2020-11-11 | MR_ITS ---
EXAMINATION: MR pelvis wo/w con DATE: 11/11/2020 10:47 INDICATION: Malignant neoplasm of the prostate TECHNIQUE: Magnetic resonance imaging (MRI) of the pelvis was performed without and with 17 mL Multih ance intravenous contrast. Fullfield sequences of the pelvis included axial and coronal T2-weighted S S FSE, axial, sagittal and coronal 2D FIESTA, axial 2D FIESTA FS, axial SSFSE-IR SHELLEY, axial dual-echo T1-weighted FSPGR, axial and coronal T1 weighted LAVA, 3D axial T2 Cube, axial diffusion-weighted SE with apparent diffusion coefficient (ADC) maps. Postcontrast sequences included a time course axial T1-weighted LAVA and sagittal and coronal T1-weighted LAVA. COMPARISON: CT dated 07/26/2020 FINDINGS: Postoperative change of interval prostatectomy. No abnormal nodular soft tissue density or masslike e nhancement at the prostatectomy bed to suggest residual/recurrent disease. 8 mm diameter diverticulum along the anterior wall of the distal rectum. There are couple additional diverticula along the sigm oid colon. All are without surrounding inflammatory stranding to suggest diverticulitis. Subtle trabe culation along the bladder wall likely related to chronic outlet obstruction. There is a new 4.5 x 1. 4 x 1.5 cm loculated fluid collection without soft tissue component located posterior to the right ex ternal iliac vein which could represent a small seroma or lymphangioma related to a prior lymph node dissection. No pathologically enlarged pelvic or inguinal lymphadenopathy. There is an approximately 1.2 cm enhancing bone lesion with restricted diffusion at the right anterior superior iliac spine con sistent with metastatic disease. No other suspicious bone lesions identified. IMPRESSION: 1. Status post prostatectomy with no evident residual or locally recurrent disease. 2. Subtle 1.2 cm enhancing bone lesion at the right anterior superior iliac spine consistent with met astatic disease. 3. New 4.5 x 1.4 x 1.5 cm likely small seroma or lymphangioma along the posterior margin of the right external iliac vein. Reviewed, dictated and finalized at location A. IMPRESSION: 1. Status post prostatectomy with no evident residual or locally recurrent dise ase. 2. Subtle 1.2 cm enhancing bone lesion at the right anterior superior iliac spi ne consistent with metastatic disease. 3. New 4.5 x 1.4 x 1.5 cm likely small seroma or lymphangioma along the posteri or margin of the right external iliac vein.
[2020-11-11 09:58] LABS: Estimated Glomerular Filt Rate 60
== END 2020-11-11 09:22 | disposition home or self-care (01) ==
PROVIDERS: PCP Internal Medicine; Visit Provider Radiology Radiation Oncology
DX: C61 Malignant neoplasm of prostate (principal); Z90.79 Acquired absence of other genital organ(s); M89.9 Disorder of bone, unspecified; R93.5 Abnormal findings on diagnostic imaging of other abdominal regions, including retroperitoneum
CPT/HCPCS: 72197; A9577

== ENCOUNTER 2022-01-14 09:02 | Outpatient (CLI) | payer MEDICARE, SELFPAY ==
--- NOTE | ~2022-01-14 | XR_ITS ---
EXAMINATION: XR chest 2V Exam Date/Time: 01/14/2022 9:20 CDT HISTORY: COUGH FOR 1 WK HX OF COPD Comparison: 08/25/2020. RESULT: Lines, tubes, and devices: None. Lungs and pleura: Senescent and emphysematous change. Bibasilar scarring.. Cardiomediastinal silhouette: Stable. Other: No acute osseous or upper abdominal finding. IMPRESSION: No acute cardiopulmonary process. Reviewed, dictated and finalized at location K.
[2022-01-14 09:50] LABS: Alanine Aminotransferase 33 U/L (6-50); Albumin Level 4.1 g/dL (3.5-5.1); Alkaline Phosphatase 117 U/L (38-126); Anion Gap 11 mmol/L (8-16); Aspartate Amino Transferase 31 U/L (17-59); Bilirubin,Total 0.6 mg/dL (0.2-1.3); Blood Urea Nitrogen 31 mg/dL (9-20); Calcium 9.7 mg/dL (8.4-10.2); Carbon Dioxide 27 mmol/L (22-30); Chloride 103 mmol/L (98-107); Cholesterol 196 mg/dL (0-200); Estimated Glomerular Filt Rate > 60; Glucose 116 mg/dL (65-110); HDL Direct 58 mg/dL; Potassium 3.8 mmol/L (3.4-5.0); Sodium 141 mmol/L (137-145); Triglycerides 59 mg/dL (<150)
[2022-01-14 10:01] LABS: LDL Cholesterol Direct 97 mg/dL
[2022-01-14 10:08] LABS: Appearance Urine Clear (Clear); Bilirubin Urine Negative (Negative); Blood Urine Negative (Negative); Color Urine Yellow (Yellow); Glucose Urine UA Negative (Negative); Ketones Urine Trace mg/dL (Negative); Leukocyte Esterase Ur Negative LEU/UL (NEGATIVE); Nitrate Urine Negative (Negative); Protein Urine Negative (Negative); Specific Grav Ur 1.025 (1.001-1.035); Urobilinogen Urine 0.2 mg/dL (<2.0)
[2022-01-14 10:21] LABS: Thyroid Stimulating Hormone 0.302 uIU/mL (0.465-4.680)
[2022-01-14 10:25] LABS: Bacteria Urine Trace /hpf; Mucus Urine Rare /lpf; RBC Urine 0-2 /hpf (0-2); Squamous Epithelial Cell Urine Rare /hpf (Few); WBC Urine 0-3 /hpf (0-3)
[2022-01-14 10:28] LABS: Basophils Percent Auto 0.3 % (0.2-1.2); Eosinophils Percent Auto 0.1 % (0-4.4); Hematocrit 39.4 % (42.0-52.0); Hemoglobin 12.4 g/dL (14.0-18.0); Immature Granulocyte Absolute 0.03 K/mm3 (0.00-0.031); Immature Granulocyte Percent A 0.3 % (0-0.5); Lymphocytes Absolute Auto 1.16 K/mm3 (0.9-3.2); Lymphocytes Percent Auto 13.3 % (18.3-44.2); Mean Corpuscular HGB Conc 31.5 g/dl (32-36); Mean Corpuscular Hemoglobin 32.3 pg (26-34); Mean Corpuscular Volume 102.6 fl (80-100); Mean Platelet Volume 9.1 fl (7.4-10.4); Monocytes Percent Auto 10.9 % (2.6-8.5); Neutrophils Absolute Auto 6.5 K/mm3 (1.3-6.7); Neutrophils Percent Auto 75.1 % (45.5-73.1); Platelet Count Result 290 k/mm3 (150-375); Red Blood Count 3.84 M/mm3 (4.6-6.20); Red Cell Distribution Width 14.1 % (11.5-14.5); White Blood Count 8.7 K/mm3 (4.5-10.0)
[2022-01-14 10:39] LABS: Add Urine Microscopic? YES
== END 2022-01-14 09:03 | disposition home or self-care (01) ==
PROVIDERS: PCP Internal Medicine; Visit Provider Internal Medicine
DX: R05.9 Cough, unspecified (principal); I10 Essential (primary) hypertension
CPT/HCPCS: 36415; 71046; 80053; 80061; 81001; 84439; 84443; 85025

== ENCOUNTER 2022-11-22 02:25 | Day surgery (SDC) | payer MEDICARE, SELFPAY ==
[2022-11-08 13:13] VITALS: BMI 23.8
--- NOTE | 2022-11-21 18:22 | PM.HPGS ---
History of Present Illness History of Present Illness Consent: Risks, benefits, and alternatives have been discussed and questions answered. Patient agrees to proceed with procedure. Chief complaint: hx colon polyps Narrative: Fermín Red is a 72 year old male Referred for colon cancer screening. He has history of polyps. Review of Systems Review of Systems: All systems reviewed & are unremarkable except as noted in HPI and below PMFSH Past Medical History Medical History COPD (chronic obstructive pulmonary disease) on 3L at Hypertension Prostate cancer Social History Social History Smoking packs per day: 1.5 Smoking cigarettes per day: 30.0 Years smoked: 45 Smoking pack-years: 67.50 Smoking status: Former smoker Tobacco type: cigarettes Alcohol intake: current Alcohol use details: Socially Substance use: never Substance use type: does not use Lack of Transportation: No Lack of Food: Never True Current Housing: I Have Housing Concerned About Future Housing: No Difficulty Paying Gas/Electric Bills: No Difficulty Paying for Meds: No Currently Unemployed: No Education: High School Diploma/GED Difficulty w/ Childcare or Family Care: No Living arrangements: with family Additional living arrangements comments: With sp Occupation/Education: retired Gender identity (if verbalized by the patient): Male Sexual Orientation (if Verbalized by the Patient): Straight or Heterosexual Spiritual care concerns: No Meds Home Medications and Allergies Home Medications Medication Instructions Recorded Confirmed Type ascorbic acid (vitamin C) 500 mg 500 mg PO DAILY 06/16/20 11/16/22 History capsule aspirin 81 mg tablet 81 mg PO DAILY 06/16/20 11/16/22 History chlorthalidone 25 mg tablet 25 mg PO DAILY 06/16/20 11/16/22 History guaifenesin 1,200 mg tablet, 1,200 mg PO DAILY 06/16/20 11/16/22 History extended release 12 hr (Mucinex) lisinopril 40 mg tablet 40 mg PO DAILY 06/16/20 11/16/22 History [id number] 300 mcg-K 60 1 tablet PO DAILY 06/16/20 11/16/22 History mcg-lycop 600 mcg-lutein 300 mcg tablet (Centrum Silver Men) fluticasone fur. 100 mcg-umeclid 1 inh inhalation DAILY 11/08/22 11/16/22 History 62.5 mcg-vilant 25 mcg inhalat.powder (Trelegy Ellipta) Allergies Allergy/AdvReac Type Severity Reaction Status Date / Time No Known Allergies Allergy Mild Verified 11/22/22 09:25 Exam Const: General: alert Orientation/consciousness: patient oriented x3 Resp: Auscultation: clear to auscultation bilaterally Cardio: Rhythm: regular rhythm GI: GI Palp: Yes Soft to palpation and No Tenderness to palpation present (GI) Neuro: General: patient oriented x3 Assessment and Plan Assessment and plan (1) Colon cancer screening: Code(s): Z12.11 - Encounter for screening for malignant neoplasm of colon Status: Acute Assessment and Plan: Colonoscopy with possible biopsy or polypectomy or cautery or injection of substances.
[2022-11-22 09:26] VITALS: BP 142/59; PULSE 102; RESP 20; TEMP 36; O2SAT 98
[2022-11-22] MEDS: LACTATED RINGERS 1,000 ML 150 ML IV CONT (09:36)
--- NOTE | 2022-11-22 09:44 | WPDANESEPPF ---
Anes - Initial Pre Proc Eval Procedure: Operation Date: 11/22/22 11:00 Proposed Procedures p Colonoscopy - Erik Campos MD Date/Time: 11/22/22 09:44 Surgeon: Erik Campos MD Pre Op Diagnosis: hx colon polyps Patient Data Age: 72 Gender: M Height: 1.8 m Weight: 74.5 kg Last Vital Signs Temp 36.0 C L 11/22/22 09:26 Pulse 102 H 11/22/22 09:26 Resp 20 11/22/22 09:26 BP 142/59 H 11/22/22 09:26 Pulse Ox 98 11/22/22 09:26 O2 Del Method Room Air 11/22/22 09:26 Allergies Allergy/AdvReac Type Severity Reaction Status Date / Time No Known Allergies Allergy Mild Verified 11/22/22 09:25 Home Medications Medication Instructions Recorded Confirmed Type ascorbic acid (vitamin C) 500 mg 500 mg PO DAILY 06/16/20 11/16/22 History capsule aspirin 81 mg tablet 81 mg PO DAILY 06/16/20 11/16/22 History chlorthalidone 25 mg tablet 25 mg PO DAILY 06/16/20 11/16/22 History guaifenesin 1,200 mg tablet, 1,200 mg PO DAILY 06/16/20 11/16/22 History extended release 12 hr (Mucinex) lisinopril 40 mg tablet 40 mg PO DAILY 06/16/20 11/16/22 History vzgcfcjp-vq-mlaxu 300 mcg-K 60 1 tablet PO DAILY 06/16/20 11/16/22 History mcg-lycop 600 mcg-lutein 300 mcg tablet (Centrum Silver Men) fluticasone fur. 100 mcg-umeclid 1 inh inhalation DAILY 11/08/22 11/16/22 History 62.5 mcg-vilant 25 mcg inhalat.powder (Trelegy Ellipta) Patient hx anesthesia problems: none Family hx anesthesia problems: none Results Review: All pre-operative results and documents have been reviewed as part of the pre-operative evaluation. [facility] Past Medical History Medical History COPD (chronic obstructive pulmonary disease) on 3L at Hypertension Prostate cancer Social History Social History Smoking packs per day: 1.5 Smoking cigarettes per day: 30.0 Years smoked: 45 Smoking pack-years: 67.50 Smoking status: Former smoker Tobacco type: cigarettes Alcohol intake: current Alcohol use details: Socially Substance use: never Substance use type: does not use Lack of Transportation: No Lack of Food: Never True Current Housing: I Have Housing Concerned About Future Housing: No Difficulty Paying Gas/Electric Bills: No Difficulty Paying for Meds: No Currently Unemployed: No Education: High School Diploma/GED Difficulty w/ Childcare or Family Care: No Living arrangements: with family Additional living arrangements comments: With sp Occupation/Education: retired Gender identity (if verbalized by the patient): Male Sexual Orientation (if Verbalized by the Patient): Straight or Heterosexual Spiritual care concerns: No Anes - Eval Final PreProcedure Day of Procedure 11/22/22 09:44 Patient weight: normal Heart: regular rate and rhythm Lungs: decreased breath sounds Airway: Mallampati scale class II Neurological: alert and oriented Last oral intake: >/= 8 hours ASA classification: III Emergent: no Anesthetic plan: proceed Anesthesia type and monitoring: general GIVS and standard monitoring Results Review: All pre-operative results and documents have been reviewed as part of the pre-operative evaluation. Informed Consent: The patient's anesthetic plan and its attendant risks and benefits were discussed with the patient/family/POA. Questions were solicited and answers provided to the satisfaction of the patient/family/POA.
[2022-11-22 10:55] VITALS: BP 120/64; PULSE 93; RESP 20; O2SAT 98
[2022-11-22 11:05] VITALS: BP 96/67; PULSE 102; RESP 22; O2SAT 100
[2022-11-22 11:15] VITALS: BP 118/70; PULSE 88; RESP 20; O2SAT 100
== END 2022-11-22 11:30 | disposition home or self-care (01) ==
PROVIDERS: PCP Internal Medicine; Visit Provider Internal Medicine Gastroenterology
PROC: 0DJD8ZZ Inspection of Lower Intestinal Tract, Via Natural or Artificial Opening Endoscopic (ICD-10-PCS; CPT 45378; principal; 2022-11-22 11:00)
DX: Z12.11 Encounter for screening for malignant neoplasm of colon (principal); K64.8 Other hemorrhoids; K57.30 Diverticulosis of large intestine without perforation or abscess without bleeding; Z86.010 Personal history of colon polyps; J44.9 Chronic obstructive pulmonary disease, unspecified; I10 Essential (primary) hypertension; Z85.46 Personal history of malignant neoplasm of prostate; Z99.81 Dependence on supplemental oxygen; Z87.891 Personal history of nicotine dependence; Z79.82 Long term (current) use of aspirin; Z79.51 Long term (current) use of inhaled steroids
CPT/HCPCS: G0105; J2704; J7120

== ENCOUNTER 2022-12-11 09:47 | Outpatient (CLI) | payer MEDICARE, SELFPAY ==
[2022-12-11 10:13] LABS: Basophils Percent Auto 0.6 % (0.2-1.2); Eosinophils Absolute Auto 0.3 K/mm3 (0-0.3); Eosinophils Percent Auto 4.9 % (0-4.4); Hematocrit 38.9 % (42.0-52.0); Hemoglobin 12.5 g/dL (14.0-18.0); Immature Granulocyte Absolute 0.01 K/mm3 (0.00-0.031); Immature Granulocyte Percent A 0.2 % (0-0.5); Lymphocytes Absolute Auto 1.01 K/mm3 (0.9-3.2); Lymphocytes Percent Auto 18.9 % (18.3-44.2); Mean Corpuscular HGB Conc 32.1 g/dl (32-36); Mean Corpuscular Hemoglobin 32.3 pg (26-34); Mean Corpuscular Volume 100.5 fl (80-100); Mean Platelet Volume 8.6 fl (7.4-10.4); Monocytes Absolute Auto 0.7 K/mm3 (0.1-0.6); Monocytes Percent Auto 13.5 % (2.6-8.5); Neutrophils Absolute Auto 3.3 K/mm3 (1.3-6.7); Neutrophils Percent Auto 61.9 % (45.5-73.1); Platelet Count Result 261 k/mm3 (150-375); Red Blood Count 3.87 M/mm3 (4.6-6.20); Red Cell Distribution Width 14.3 % (11.5-14.5); White Blood Count 5.3 K/mm3 (4.5-10.0)
[2022-12-11 13:27] LABS: Alanine Aminotransferase 30 U/L (6-50); Albumin Level 4.3 g/dL (3.5-5.1); Alkaline Phosphatase 92 U/L (38-126); Anion Gap 6 mmol/L (8-16); Aspartate Amino Transferase 31 U/L (17-59); Bilirubin,Total 0.6 mg/dL (0.2-1.3); Blood Urea Nitrogen 38 mg/dL (9-20); Calcium 9.5 mg/dL (8.4-10.2); Carbon Dioxide 30 mmol/L (22-30); Chloride 105 mmol/L (98-107); Estimated Glomerular Filt Rate 46; Glucose 96 mg/dL (65-110); Potassium 4.2 mmol/L (3.4-5.0); Sodium 141 mmol/L (137-145)
[2022-12-11 13:34] LABS: Immunoglobulin A 100 mg/dL (70-400); Immunoglobulin G 1246 mg/dL (700-1600); Immunoglobulin M 45 mg/dL (40-230)
[2022-12-13 15:38] LABS: Abnormal Protein Band 1 0.7 g/dL; Alpha 1 Globulin 0.3 g/dL (0.2-0.3); Alpha 2 Globulin 0.8 g/dL (0.5-0.9); Beta 1 Globulin 0.4 g/dL (0.4-0.6); Gamma Globulin 1.1 g/dL (0.8-1.7); Protein, Total 6.8 g/dL (6.1-8.1)
[2022-12-14 12:59] LABS: Kappa\\Lambda Light Chains 17.11 (0.26-1.65); Lambda Light Chain 14.5 mg/L (5.7-26.3)
== END 2022-12-11 09:48 | disposition home or self-care (01) ==
PROVIDERS: PCP Internal Medicine; Visit Provider Internal Medicine Hematology & Oncology
DX: D47.2 Monoclonal gammopathy (principal)
CPT/HCPCS: 36415; 80053; 82784; 83883; 84155; 84165; 85025

== ENCOUNTER 2023-03-14 08:38 | Outpatient (CLI) | payer MEDICARE, SELFPAY ==
--- NOTE | ~2023-03-14 | CT_ITS ---
EXAMINATION: CT abdomen pelvis w con DATE: 03/14/2023 09:01 INDICATION: Prostate cancer restaging TECHNIQUE: Computed tomography (CT) of the abdomen and pelvis was performed with 100 CC Omnipaque 350 intravenous contrast. Automated exposure control and iterative reconstruction technique were employe d. Exam dose: 438.14 mGy-cm total exam DLP. COMPARISON: 11/11/2020 MRI pelvis 09/09/2020 cystogram 07/16/2020 CT abdomen pelvis FINDINGS: The lung bases are clear of infiltrate or consolidation. Normal heart size. No pericardial or pleural effusion. Small sliding hiatal hernia. Again noted are scattered small hepatic cysts, the largest in the left hepatic lobe, measuring up to approximately 6 mm dimension. No suspicious hepatic space-occupying mass lesion or intrahepatic or ex trahepatic bile duct or pancreatic duct dilatation. No pancreatic mass lesion or calcification. No gallbladder wall thickening or pericholecystic fluid or fat stranding. Normal splenic size. Normal morphology of the adrenal glands. Approximately 2.7 x 5.5 mm nonobstructing right renal calculus. No other urinary tract calculus or hy droureteronephrosis is detected. No renal mass lesion. There is extensive atherosclerotic calcification of the abdominal aorta without aneurysm. There is pr ominent calcification at the origins of the celiac and particularly superior mesenteric arteries as w ell as origins of the renal arteries. There is extensive calcification of the iliac and femoral arter ies. The bladder is relatively evacuated. There is moderate diffuse thickening of the urinary bladder wall . Status post prostatectomy. No abnormal mass lesion is detected in the prostate bed pelvis to sugges t any residual or recurrent prostate malignancy. No intraperitoneal or retroperitoneal or pelvic mass lesion or lymphadenopathy is detected. Approximately 1.3 cm osteosclerotic lesion of the anterior right iliac iliac bone may be a prostate o steosclerotic metastasis. Chronic approximately 6 mm osteosclerotic focus within the L5 vertebral bod y and chronic 5 mm osteosclerotic focus of the second lumbar vertebral body (both present on 07/16/2020 ), which may be bone islands or osteosclerotic metastatic deposits. Consider bone scintigraphic corre lation as clinically appropriate. Severe degenerative disc disease at L3-4, L4-5 and L5-S1. Prominent degenerative change at the lower lumbar apophyseal joints. IMPRESSION: Status post prostatectomy; no recurrent or local metastatic disease is noted Sclerotic osteosclerotic foci of L2, L5 vertebral bodies and new right iliac bone osteosclerotic lesi on since 07/16/2020; consider bone scan correlation as clinically appropriate Small sliding hiatal hernia Stable scattered hepatic cysts 2.7 x 5.5 mm nonobstructing right renal calculus Extensive atherosclerosis Reviewed, dictated and finalized at Location [facility]. Reviewed, dictated and finalized at location B. 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
--- NOTE | ~2023-03-14 | NM_ITS ---
EXAMINATION: NM bone scan whole body DATE: 03/14/2023 12:45 INDICATION: Prostate cancer TECHNIQUE: 24.5 mCi Tc-99m HDP was administered intravenously. Delayed whole-body scintigrams were o btained. COMPARISON: Bone scan dated 07/16/[address] abdomen and pelvis dated 03/14/2023 FINDINGS: Again seen is likely degenerative joint centered uptake at the bilateral sternoclavicular and acromio clavicular articulations. Persistent mild degenerative discogenic uptake at L2-L3, L3-L4 and L4-L5 wi th severe associated disc height loss with degenerative endplate changes seen on prior CT. Is also un changed mild uptake in the cervical spine likely combination of degenerative facet and uncovertebral osteoarthritis as seen on PET/CT dated 09/13/2017. No other suspicious foci of abnormal bone uptake to suggest metastatic disease. IMPRESSION: 1. Stable appearance of mild scattered likely degenerative uptake as detailed above. No evident metas tatic disease. Reviewed, dictated and finalized at location A. TRUCTION ELECTRICIAN IMPRESSION: 1. Stable appearance of mild scattered likely degenerative uptake as detailed a lexie. No evident metastatic disease.
[2023-03-14 08:56] LABS: Estimated Glomerular Filt Rate 54
== END 2023-03-14 08:39 | disposition home or self-care (01) ==
PROVIDERS: PCP Internal Medicine; Visit Provider Urology
DX: C61 Malignant neoplasm of prostate (principal); K44.9 Diaphragmatic hernia without obstruction or gangrene; N20.0 Calculus of kidney; I70.90 Unspecified atherosclerosis; K76.89 Other specified diseases of liver
CPT/HCPCS: 74177; 78306; A9503; Q9967

== ENCOUNTER 2023-04-03 11:16 | Outpatient (CLI) | payer MEDICARE, SELFPAY ==
--- NOTE | ~2023-04-03 | US_ITS ---
EXAMINATION: US renal BI DATE: 04/03/2023 12:03 INDICATION: Abnormal function studies TECHNIQUE: Multiple ultrasound grayscale images of the kidneys were obtained. COMPARISON: CT dated 04/03/2023 FINDINGS: The right kidney measures 9.6 x 4.6 x 4.2 cm. The left kidney measures 8.7 x 4.5 x 4.4 cm. The kidney s demonstrate normal echogenicity. There is no hydronephrosis in either kidney. No stones identified . The bladder is normal. IMPRESSION: 1. Normal kidneys without hydronephrosis. Reviewed, dictated and finalized at location A. [employer]RI[employer] MANAGEMENT BIOLOGIST
== END 2023-04-03 11:17 | disposition home or self-care (01) ==
LOC: ANHIMG 11:17
PROVIDERS: PCP Internal Medicine; Visit Provider Internal Medicine Nephrology
DX: R94.4 Abnormal results of kidney function studies (principal); I10 Essential (primary) hypertension; C61 Malignant neoplasm of prostate
CPT/HCPCS: 76775

== ENCOUNTER 2023-07-05 10:49 | Outpatient (CLI) | payer MEDICARE, SELFPAY ==
[2023-07-05 11:15] LABS: Basophils Percent Auto 0.8 % (0.2-1.2); Eosinophils Absolute Auto 0.3 K/mm3 (0-0.3); Eosinophils Percent Auto 5.7 % (0-4.4); Hematocrit 42.4 % (42.0-52.0); Hemoglobin 13.8 g/dL (14.0-18.0); Immature Granulocyte Absolute 0.01 K/mm3 (0.00-0.031); Immature Granulocyte Percent A 0.2 % (0-0.5); Lymphocytes Absolute Auto 1.32 K/mm3 (0.9-3.2); Lymphocytes Percent Auto 26.8 % (18.3-44.2); Mean Corpuscular HGB Conc 32.5 g/dl (32-36); Mean Corpuscular Hemoglobin 32.9 pg (26-34); Mean Corpuscular Volume 101.2 fl (80-100); Mean Platelet Volume 8.9 fl (7.4-10.4); Monocytes Absolute Auto 0.7 K/mm3 (0.1-0.6); Monocytes Percent Auto 14.2 % (2.6-8.5); Neutrophils Absolute Auto 2.6 K/mm3 (1.3-6.7); Neutrophils Percent Auto 52.3 % (45.5-73.1); Platelet Count Result 256 k/mm3 (150-375); Red Blood Count 4.19 M/mm3 (4.6-6.20); Red Cell Distribution Width 13.4 % (11.5-14.5); White Blood Count 4.9 K/mm3 (4.5-10.0)
[2023-07-05 13:05] LABS: Alanine Aminotransferase 32 U/L (6-50); Albumin Level 4.2 g/dL (3.5-5.1); Alkaline Phosphatase 96 U/L (38-126); Anion Gap 5 mmol/L (4-12); Aspartate Amino Transferase 31 U/L (17-59); Bilirubin,Total 0.7 mg/dL (0.2-1.3); Blood Urea Nitrogen 41 mg/dL (9-20); Calcium 9.8 mg/dL (8.4-10.2); Carbon Dioxide 30 mmol/L (22-30); Chloride 103 mmol/L (98-107); Estimated Glomerular Filt Rate 54; Glucose 110 mg/dL (65-110); Potassium 4.3 mmol/L (3.4-5.0); Sodium 138 mmol/L (137-145)
[2023-07-05 13:13] LABS: Immunoglobulin A 109 mg/dL (70-400); Immunoglobulin G 1131 mg/dL (700-1600); Immunoglobulin M 48 mg/dL (40-230)
[2023-07-07 09:19] LABS: Protein, Total 6.7 g/dL (6.1-8.1)
[2023-07-09 14:23] LABS: Abnormal Protein Band 1 0.8 g/dL (NONE DETECTED); Alpha 1 Globulin 0.2 g/dL (0.2-0.3); Alpha 2 Globulin 0.7 g/dL (0.5-0.9); Beta 1 Globulin 0.4 g/dL (0.4-0.6); Gamma Globulin 1.1 g/dL (0.8-1.7)
[2023-07-10 13:42] LABS: Kappa\\Lambda Light Chains 18.39 (0.26-1.65); Lambda Light Chain 14.7 mg/L (5.7-26.3)
== END 2023-07-05 10:50 | disposition home or self-care (01) ==
LOC: ANHLAB 10:52
PROVIDERS: PCP Internal Medicine; Visit Provider Internal Medicine Hematology & Oncology
DX: D47.2 Monoclonal gammopathy (principal)
CPT/HCPCS: 36415; 80053; 82784; 83883; 84155; 84165; 85025

== ENCOUNTER 2023-10-11 12:32 | Outpatient (CLI) | payer MEDICARE, SELFPAY ==
--- NOTE | ~2023-10-11 | PE_ITS ---
EXAMINATION: PET_PETPSMAST_PT DATE: 10/11/2023 14:35 INDICATION: Prostate cancer. TECHNIQUE: 5.612 mCi of Ga-68 gozetotide was administered intravenously. Low dose computed tomography (CT) images were acquired from the base of the brain to the proximal thighs for attenuation correcti on and anatomic localization. Automated exposure control was employed. Dose-length product (DLP) was 889 mGy-cm. Positron emission tomography (PET) images were acquired in the same distribution. COMPARISON: CT abdomen and pelvis 03/14/2023, PET/CT 09/13/17 FINDINGS: Head/neck: There are no pathologically enlarged lymph nodes. Chest: There is severe emphysema. There are a few nodules in right middle lobe measuring up to 9 mm. There is a 14 mm nodule in left lower lobe. No pleural effusion. The heart size is normal. There are coronary artery calcifications. No pericardial effusion. There is bilateral gynecomastia. There is a sclerotic lesion in right scapula with increased activity. There is focal increased activity in right fourth rib without abnormal CT correlate. Abdomen/pelvis/proximal thighs: The liver, gallbladder, spleen, pancreas, adrenal glands, and left ki dney are normal. There is a 6 mm stone in right kidney. There is an umbilical hernia containing fat. There is calcified atherosclerosis of the aorta and many of the other arteries. There are no dilated loops of bowel. The appendix is normal. There are no pathologically enlarged lymph nodes. There is no free intraperitoneal fluid. There is a sclerotic lesion in right iliac crest with increased activity . IMPRESSION: 1. Three bone lesions with increased activity, consistent metastatic disease. 2. Pulmonary nodules measuring up to 14 mm, which may be infection or malignancy. Noncontrast low-dos e chest CT is recommended in 3 months. Reviewed, dictated and finalized at location A. IMPRESSION: 1. Three bone lesions with increased activity, consistent metastatic disease. 2. Pulmonary nodules measuring up to 14 mm, which may be infection or malignanc y. Noncontrast low-dose chest CT is recommended in 3 months.
== END 2023-10-11 12:33 | disposition home or self-care (01) ==
LOC: ANHIMG 12:32
PROVIDERS: PCP Internal Medicine; Visit Provider Urology
DX: C61 Malignant neoplasm of prostate (principal); R91.8 Other nonspecific abnormal finding of lung field
CPT/HCPCS: 78815; A9596

== ENCOUNTER 2023-12-12 11:17 | Outpatient (CLI) | payer MEDICARE, SELFPAY ==
--- NOTE | 2023-12-12 11:30 | ECG_ITS ---
Test Date: 2023-12-12 11:41:09 Measurements Intervals [place] Rate: 82 P: 89 [place]: 168 QRS: 49 QRSD: 101 T: 62 QT: 373 QTc: 436 Interpretive Statements SINUS RHYTHM WITH OCCASIONAL VENTRICULAR PREMATURE COMPLEXES ABNORMAL ECG No previous ECG available for comparison Electronically Signed On 12-12-2023 14:06:46 CDT by Lorenzo Padilla M.D.
== END 2023-12-12 11:18 | disposition home or self-care (01) ==
LOC: ANHSURGERY 11:21
PROVIDERS: PCP Internal Medicine; Visit Provider Urology
DX: I10 Essential (primary) hypertension (principal); Z01.818 Encounter for other preprocedural examination; R94.31 Abnormal electrocardiogram [ECG] [EKG]
CPT/HCPCS: 93005

== ENCOUNTER 2023-12-14 04:43 | Day surgery (SDC) | payer MEDICARE, SELFPAY ==
[2023-12-12 08:26] VITALS: BMI 24.4
--- NOTE | 2023-12-12 08:27 | PC.NURSE ---
Addendum entered by Donovan Chavez RN 12/12/23 15:07: Please use Trelegy inhaler morning of surgery. Original Note: Report to the Outpatient Waiting Room, entrance under the green pavilion located off [facility], at time _1200_ on date _[id number]_. Planned Procedure Time: _2pm_.? Time changes happen often and if your time is changed the preop area will call you the afternoon before. - You and your visitor will be asked to self-screen and do not enter if you have any COVID symptoms. Please call surgeon if you need to reschedule. - A mask is optional within the hospital at this time. Patients may have clear liquids (water, carbonated beverages, clear teas, apple juice) until 3 hours prior to surgery with a maximum of 20 ounces. - No food from midnight until time of surgery and no smoking Take only the following medications with a SIP of water on the morning of surgery: __None DO NOT STOP ANY OF YOUR OTHER PRESCRIPTION MEDICATIONS PRIOR TO SURGERY EXCEPT THE FOLLOWING Medications to discontinue per physician ___Multivitamin Date to take last dose___Stop now Please no make-up, nail andorran, hairspray, perfume, deodorant, or body powder the day of surgery.? No jewelry (including any body piercings) or valuables the day of surgery, leave them at home.? Please take a shower or bath the night before, or the morning of, surgery with an antibacterial soap.? Wear comfortable, loose fitting clothing.? - Jewelry must be removed prior to entering the operating room.? Rings and piercings that are not removed may be cut off. - The hospital will not accept responsibility for valuables.? - Please leave all valuables, including medications, at home the day of surgery. If you are going home after surgery, a licensed dedicated local truck driver must drive you home.? - NO public transportation without another adult if you receive anesthesia. - We recommend that an adult stay with you for 24 hours following discharge. - We also recommend that you do not drive, make important decision, drink alcoholic beverages, or take any drugs that were not prescribed by your health care provider for at least 24 hours after your discharge time. Follow any additional instructions given to you from your surgeon. Telephone instructions given to __Stepye__and asked if any additional questions and then verbalized understanding. Patient advised to call surgeon office or pre surgery nurse liaison [phone] if any additional questions.
[2023-12-14] VITALS (10 sets, daily range): BP systolic 98–122; BP diastolic 48–70; PULSE 64–107; RESP 12–16; TEMP 36.2–36.3; O2SAT 92–100
--- NOTE | ~2023-12-14 | XR_ITS ---
EXAMINATION: XR retrograde pyelogram BI DATE: 12/14/2023 15:30 INDICATION: Gross hematuria. TECHNIQUE: 30 intraoperative fluoroscopic views of the abdomen and pelvis were obtained. I was not pr esent. Fluoroscopy exposure time was 51 seconds. COMPARISON: PET/CT 10/11/2023 FINDINGS: The bladder is distended. The bilateral retrograde pyelograms are unremarkable. IMPRESSION: 1. Normal bilateral retrograde pyelograms. Reviewed, dictated and finalized at location A.
--- NOTE | 2023-12-14 06:30 | WPDHPUPDATE1 ---
History and Physical Update Update Date/Time: 12/14/23 06:30 History and Physical has been reviewed, including an updated exam of the patient. There are NO changes in the patient's condition. Risks, benefits, and alternatives have been discussed and questions answered. Patient agrees to proceed with procedure.
[2023-12-14] MEDS: LACTATED RINGERS 1,000 ML 30 ML IV CONT ×2 (13:40→15:56)
--- NOTE | 2023-12-14 14:15 | WPDANESEPPF ---
Anes - Initial Pre Proc Eval Procedure: Operation Date: 12/14/23 14:00 Proposed Procedures p Cystoscopy, Clot Evacuation, Intraoperative Cystogram, Bilateral Retrograde Pyelography, Possible 1% Formalin Instillation - Richard Dangelo MD Date/Time: 12/14/23 14:15 Surgeon: Richard Dangelo MD Pre Op Diagnosis: Gross Hematuria Patient Data Age: 73 Gender: M Height: 1.78 m Weight: 75.3 kg Last Vital Signs Temp 36.2 C L 12/14/23 13:00 Pulse 107 H 12/14/23 13:00 Resp 16 12/14/23 13:00 BP 108/51 L 12/14/23 13:00 Pulse Ox 98 12/14/23 13:00 O2 Del Method Room Air 12/14/23 13:00 Allergies Allergy/AdvReac Type Severity Reaction Status Date / Time No Known Allergies Allergy Mild Verified 12/12/23 08:19 Home Medications Medication Instructions Recorded Confirmed Type chlorthalidone 25 mg tablet 25 mg PO DAILY 06/16/20 12/14/23 History guaifenesin 1,200 mg tablet, 1,200 mg PO DAILY 06/16/20 12/14/23 History extended release 12 hr (Mucinex) lisinopril 40 mg tablet 40 mg PO DAILY 06/16/20 12/14/23 History gaglfmme-ey-uwnwj 300 mcg-K 60 1 tablet PO DAILY 06/16/20 12/14/23 History mcg-lycop 600 mcg-lutein 300 mcg tablet (Centrum Silver Men) fluticasone fur. 100 mcg-umeclid 1 inh inhalation DAILY 11/08/22 12/14/23 History 62.5 mcg-vilant 25 mcg inhalat.powder (Trelegy Ellipta) enzalutamide 80 mg tablet (Xtandi) 80 mg PO DAILY 12/12/23 12/14/23 History Laboratory Tests 12/14/23 13:31 Sodium Pending Potassium Pending Chloride Pending Carbon Dioxide Pending Anion Gap Pending BUN Pending Creatinine Pending Estim Creat Clear Calc Pending Estimated GFR Pending Glucose Pending Calcium Pending Patient hx anesthesia problems: none Family hx anesthesia problems: none Results Review: All pre-operative results and documents have been reviewed as part of the pre-operative evaluation. [facility] Past Medical History Medical History COPD (chronic obstructive pulmonary disease) on 3L at HS Hypertension Prostate cancer Social History Social History Smoking packs per day: 1.5 Smoking cigarettes per day: 30.0 Years smoked: 45 Smoking pack-years: 67.50 Smoking status: Former smoker Tobacco type: cigarettes Smoking end date: 12/11/12 Alcohol intake: current Alcohol use details: Socially Substance use: never Substance use type: does not use Do You Feel Safe in your Home?: Yes Lack of Transportation: No Lack of Food: Never True Current Housing: I Have Housing Concerned About Future Housing: No Difficulty Paying Gas/Electric Bills: No Difficulty Paying for Meds: No Currently Unemployed: No Education: High School Diploma/GED Difficulty w/ Childcare or Family Care: No Living arrangements: with family Additional living arrangements comments: With sp Occupation/Education: retired Gender identity (if verbalized by the patient): Male Sexual Orientation (if Verbalized by the Patient): Straight or Heterosexual Spiritual care concerns: No Anes - Eval Final PreProcedure Day of Procedure 12/14/23 14:15 Patient weight: normal Heart: regular rate and rhythm Lungs: clear to auscultation Airway: Mallampati scale class II Neurological: alert and oriented Last oral intake: >/= 8 hours ASA classification: III Emergent: no Anesthetic plan: proceed Anesthesia type and monitoring: general LMA and standard monitoring Results Review: All pre-operative results and documents have been reviewed as part of the pre-operative evaluation. Informed Consent: The patient's anesthetic plan and its attendant risks and benefits were discussed with the patient/family/POA. Questions were solicited and answers provided to the satisfaction of the patient/family/POA.
[2023-12-14 14:20] LABS: Anion Gap 6 mmol/L (4-12); Blood Urea Nitrogen 46 mg/dL (9-20); Calcium 9.1 mg/dL (8.4-10.2); Carbon Dioxide 29 mmol/L (22-30); Chloride 105 mmol/L (98-107); Estimated CRCL calculation 43 ml/min; Estimated Glomerular Filt Rate 50; Glucose 101 mg/dL (65-110); Potassium 3.9 mmol/L (3.4-5.0); Sodium 140 mmol/L (137-145)
[2023-12-14] MEDS: ceFAZolin 2 GM/D5W 50 ML 2 GM/50 ML BAG IVPB (14:52)
[2023-12-14] MEDS: LIDOCAINE HCL 2% GEL UROJET 10 ML PKG MUCOUS MEM (15:14)
[2023-12-14] MEDS: [UNRECOGNIZED DRUG - OTHER] IRRIGATION (15:18)
[2023-12-14] MEDS: STERILE WATER IRRIGATION (15:18)
[2023-12-14] MEDS: fentaNYL CITRATE INJ (*CRX) 100 MCG/2 ML VIAL 25 MCG IV PUSH ×2 (16:28→16:30)
--- NOTE | 2023-12-14 16:39 | P.OP_ITS ---
Procedure Note - Detailed Date of Procedure 12/14/23 Pre-op Diagnosis Gross Hematuria Post-op Diagnosis Same Procedure Performed 1. Cystoscopy, urethral dilatation 2. Bilateral retrograde pyelography 3. Intraoperative cystogram 4. 1% formalin installation 5. Transurethral resection bladder lesion Surgeon Richard Dangelo MD Anesthesia General Description of Procedure patient is brought to the operative suite where he was prepped and draped in routine sterile fashion while dorsal lithotomy position after the uneventful induction of general anesthesia. A 1st had to dilate his urethral meatus from 18 Prydeinig to [address] in order to place a 21 Prydeinig rigid cystoscope. There was no urethral strictures. There was mild hyperemia in the prostatic urethra. The bladder mucosa shows patchy hyperemia in the more dependent portion, consistent with radiation cystitis. Additionally he has 1 small area of papillary change in the right posterolateral bladder wall well above the trigone. This has the appearance of a possible urothelial carcinoma and is oozing blood noticeably. I performed bilateral retrograde pyelography with 8 Prydeinig bulb tip catheters. There was no sign of upper tract filling defect, obstruction or other identifiable pathology. Opted to instill 1% formalin after doing a cystogram that shows no evidence of reflux. The cystogram was done by filling the bladder with 350 cc dilute contrast. With the 1% formalin I filled his bladder to 250 cc and allowed to solution to stand for 20 minutes. Subsequent to drainage I copiously irrigated his bladder. I then resected this area of papillary change in the posterolateral wall and cauterize the base extensively. The patient tolerated this procedure well and was taken to the recovery room in good condition
== END 2023-12-14 18:40 | disposition home or self-care (01) ==
PROVIDERS: Anesthesiology; PCP Internal Medicine; Visit Provider Urology
PROC: (CPT 52352; principal; 2023-12-14 14:00)
DX: C67.2 Malignant neoplasm of lateral wall of bladder (principal); R31.0 Gross hematuria; N40.0 Benign prostatic hyperplasia without lower urinary tract symptoms; I10 Essential (primary) hypertension; J44.9 Chronic obstructive pulmonary disease, unspecified; Z79.51 Long term (current) use of inhaled steroids; Z87.891 Personal history of nicotine dependence; Z85.46 Personal history of malignant neoplasm of prostate
CPT/HCPCS: 52235; 36415; 74420; 80048; 88305; A9270; C1758; C1769; J0690; J3010; J7120; Q9966